=== PATIENT | male | born 1965 | race Caucasian/White ===

== ENCOUNTER 2020-09-17 00:12 | Emergency (ER) | payer BC ==
[~2020-09-17] VITALS: Ht 165.1 cm; Wt 104.3 kg
[2020-09-17 01:06] LABS: Source, Urine Clean Catch
[2020-09-17 01:09] LABS: BASOPHILS ABSOLUTE AUTO 0.05 K/mm3 (0.00-0.23); BASOPHILS PERCENT AUTO 1 % (0-2); EOSINOPHILS ABSOLUTE AUTO 0.15 K/mm3 (0.00-0.68); EOSINOPHILS PERCENT AUTO 2 % (0-6); Hematocrit 42.5 % (37.0-53.0); Hemoglobin 14.5 g/dL (13.5-17.5); IMMATURE GRAN ABSOLUTE AUTO 0.02 K/mm3 (0.00-0.10); IMMATURE GRAN PERCENT AUTO 0 % (0-1); LYMPHOCYTES ABSOLUTE AUTO 1.54 K/mm3 (0.84-5.20); LYMPHOCYTES PERCENT AUTO 24 % (21-46); MONOCYTES PERCENT AUTO 11 % (4-13); Mean Corpuscular HGB 32.4 pg (26.0-34.0); Mean Corpuscular HGB Conc 34.1 g/dL (31.5-36.5); Mean Corpuscular Volume 95 fL (80-100); Mean Platelet Volume 10.1 fL (9.1-12.4); NEUTROPHILS ABSOLUTE AUTO 4.07 K/mm3 (1.96-9.15); NEUTROPHILS PERCENT AUTO 62 % (41-73); Platelet Count 144 K/mm3 (150-400); RDW Coefficient Variation 12.1 % (11.7-14.2); Red Blood Cell Count 4.48 M/mm3 (4.30-5.90); White Blood Cell Count 6.53 K/mm3 (4.00-11.30)
[2020-09-17 01:09] LABS: Bilirubin, Urine Neg (Neg); Blood, Urine Neg (Neg); Glucose Qualitative, Urine Neg (Neg); Ketones, Urine Neg (Neg); Leukocyte Esterase, Urine Neg (Neg); Nitrite, Urine Neg (Neg); Protein, Urine Neg (Neg); Specific Gravity, Urine 1.025 (1.003-1.022); Urobilinogen, Urine NORM (Normal)
[2020-09-17 01:15] LABS: Appearance, Urine Clear (Clear); Color, Urine Yellow (P-Yellow)
[2020-09-17 01:27] LABS: Alanine Aminotransfer (ALT/SGP 58 U/L (12-78); Albumin, Blood 3.9 g/dL (3.4-5.0); Albumin/Globulin Ratio 1.1 (0.8-1.8); Alk Phos 104 U/L (50-136); Anion Gap 7 mmol/L (6-16); Aspartate Aminotrans (AST/SGOT 33 U/L (12-37); Bilirubin, Total 0.3 mg/dL (0.1-1.0); Blood Urea Nitrogen 17 mg/dL (8-24); Bun/Creatinine Ratio 15.9 (12.0-20.0); CO2, Blood 26 mmol/L (21-32); Chloride, Blood 107 mmol/L (98-108); Creatinine, Blood 1.07 mg/dL (0.60-1.20); Globulin, Blood 3.5 g/dL (2.2-4.0); Glomerular Filtration Rate >60 (60-); Glucose, Blood 103 mg/dL (70-99); Sodium, Blood 140 mmol/L (136-145); Total Protein, Blood 7.4 g/dL (6.4-8.2)
== END 2020-09-17 02:28 | disposition home or self-care (01) ==
LOC: ER 00:12
PROVIDERS: Emergency Medicine
DX: R10.9 Unspecified abdominal pain (principal); Z87.891 Personal history of nicotine dependence
CPT/HCPCS: 36415; 80053; 81003; 83690; 85025; 99284; A9270

== ENCOUNTER 2024-09-21 12:28 | Day surgery (SDC) | payer BC ==
[~2024-09-21] VITALS: Ht 167.6 cm; Wt 109.6 kg
[~2024-09-21 12:28] MED LIST: NS 500 ML IV ONE
[2024-09-21] MEDS ORDERED: NS 500 ML IV ONE (13:05)
[2024-09-21] MEDS ORDERED: ATORVASTATIN CA20 MG PO (13:10)
[2024-09-21] MEDS ORDERED: TRAZ100 PO (13:11)
[2024-09-21] MEDS ORDERED: LOSA50 PO (13:11)
[2024-09-21] MEDS ORDERED: AMLODIPINE BESYL5 MG PO (13:11)
[2024-09-21] MEDS ORDERED: SPIRONOLACTONE25 MG PO (13:12)
[2024-09-21] MEDS ORDERED: ATEN50 PO (13:12)
[2024-09-21] MEDS ORDERED: Midazolam HCl 1MG / ML 2ML Vial ONE (14:52)
--- NOTE | 2024-09-21 14:53 | NUR ---
09/21/24 1453 Angelika Mahan PERFORMED W/ THIS RN AND FOR LEFT CARPAL TUNNEL RELEASE IN PRE-OP UNIT PRIOR TO SURGERY. T/O AT 1441. START TIME: 1443, END TIME: 1445.
[2024-09-21] MEDS ORDERED: Ketorolac Tromethamine 30mg Vial ONE (15:02)
[2024-09-21 15:16] VITALS: BP 100/66
--- NOTE | 2024-09-21 15:40 | NUR ---
09/21/24 1540 BERNA CARPENTER PT DENIES PAIN. PT IN FOR DC INSTRUCTIONS
== END 2024-09-21 15:40 | disposition home or self-care (01) ==
LOC: ORSCSDS 12:28
PROVIDERS: Orthopaedic Surgery
PROC: 01N54ZZ Release Median Nerve, Percutaneous Endoscopic Approach (ICD-10-PCS; principal; 2024-09-21 14:15)
DX: G56.02 Carpal tunnel syndrome, left upper limb (principal); I10 Essential (primary) hypertension; E78.5 Hyperlipidemia, unspecified; Z79.899 Other long term (current) drug therapy
CPT/HCPCS: J1885; J2250; J7040